=== PATIENT | female | born 1955 | race Caucasian/White ===

== ENCOUNTER → 2019-07-21 | Outpatient (CLI) | payer OTHER ==
[2019-07-21 10:53] LABS: INR 1.02 (0.85-1.15); PARTIAL THROMBOPLASTIN TIME 27.3 SEC (26.3-35.5); PROTHROMBIN TIME 10.7 SEC (9.6-11.6)
--- NOTE | 2019-07-21 11:25 | NUR ---
U/S GUIDED BX OF LEFT BREAST AND LEFT AXILLA PROCEDURE PERFORMED BY DR. TOWNSEND. PUNCTURE SITE LEFT LATERAL BREAST. PATIENT TOLERATED PROCEDURE WELL. SPECIMEN X 3 COLLECTED AND SENT TO LAB. END OF PROCEDURE AT 1145. TISSUE MARKER PLACED TO SITE, BIOPSY NEEDLE REMOVED AND DRESSING APPLIED. NO BLEEDING NOTED. PUNCTURE SITE TO THE LEFT AXILLA, PATIENT TOLERATED WELL. SPECIMEN X 3 COLLECTED AND SENT TO LAB. END OF PROCEDURE AT 1150, TISSUE MARKER PLACED TO SITE, BIOPSY NEEDLE REMOVED AND DRESSING APPLIED. NO BLEEDING NOTED. DISCHARGE INSTRUCTIONS GIVEN TO PATIENT. PATIENT VERBALIZED UNDERSTANDING. DISCHARGED AMBULATORY @ 1210. PT STABLE, AAO X 3, WITH NO C/O PAIN.
== END | disposition home or self-care (01) ==
LOC: RAH 09:48
PROVIDERS: ATTEND Internal Medicine Nephrology
DX: N63.22 Unspecified lump in the left breast, upper inner quadrant (principal); N63.32 Unspecified lump in axillary tail of the left breast; N60.32 Fibrosclerosis of left breast; Z88.1 Allergy status to other antibiotic agents
CPT/HCPCS: 19083; 19084; 36415; 85610; 85730; 88305; A4215 ×5

== ENCOUNTER 2022-09-06 13:46 | Emergency (ER) | payer OTHER ==
[~2022-09-06] VITALS: Ht 167.6 cm; Wt 71.7 kg
[2022-09-06 14:20] LABS: BASOPHILS % (AUTO) 0.6 % (0.0-5.0); EOSINOPHILS % (AUTO) 0.4 % (0.0-8.0); HEMATOCRIT 43.1 % (36-48); MEAN CORPUSCULAR HGB CONC 34.8 g/dL (32.0-36.0); MEAN CORPUSCULAR VOLUME 94.9 fL (79-99); NEUTROPHILS % (AUTO) 60.7 % (40.0-77.0); PLATELET COUNT (AUTO) 165 K/uL (130-400); RED BLOOD CELL COUNT(AUTO) 4.54 MIL/uL (4.00-5.50); RED CELL DISTRIBUTION WIDTH 12.6 % (11.0-15.5); WHITE BLOOD COUNT (AUTO) 7.2 K/uL (4.8-10.8)
[2022-09-06 14:28] LABS: CREATININE 0.7 mg/dL (0.5-1.5); POTASSIUM 3.6 mmol/L (3.5-5.1)
[2022-09-06] MEDS ORDERED: ONDANSETRON 4MG INJ IVP ONE (14:30)
[2022-09-06] MEDS ORDERED: LACTATED RINGERS 1000ML 1,000 ML IV ONE (14:30)
[2022-09-06 14:33] LABS: ALBUMIN 4.1 g/dL (3.5-5.0); TOTAL PROTEIN, SERUM 8.5 g/dL (6.0-8.3)
[2022-09-06 16:15] LABS: APPEARANCE,URINE CLEAR (CLEAR); BILIRUBIN,URINE NEGATIVE (NEGATIVE); COLOR,URINE LIGHT-YELLOW (YELLOW); GLUCOSE, URINE (UA) NEGATIVE (NEGATIVE); KETONES,URINE 10 mg/dL (NEGATIVE); LEUKOCYTE ESTERASE ,URINE NEGATIVE Leu/uL (NEGATIVE); NITRATE,URINE NEGATIVE (NEGATIVE); OCCULT BLOOD,URINE NEGATIVE (NEGATIVE); PROTEIN,URINE NEGATIVE (NEGATIVE); UROBILINOGEN,URINE 0.2 mg/dL (0.2-1.0)
[2022-09-06 16:24] LABS: BACTERIA,URINE RARE /HPF (None Seen); MUCUS,URINE RARE LPF (None Seen); SQUAMOUS EPITHELIAL CELL,UR FEW /HPF (0-2); WBC,URINE 0-1 /HPF (0-1)
[2022-09-06 17:22] VITALS: BP 125/78
[2022-09-06] MEDS ORDERED: ONDA-104 PO (17:29)
== END 2022-09-06 18:20 | disposition home or self-care (01) ==
LOC: EDH 13:46
DX: R10.84 Generalized abdominal pain (principal); R42 Dizziness and giddiness; R51.9 Headache, unspecified; E11.9 Type 2 diabetes mellitus without complications; I10 Essential (primary) hypertension; Z88.1 Allergy status to other antibiotic agents
CPT/HCPCS: 99285; 74176; 96374; 96361; 82150; 84484 ×2; 80053; 83690; 85025; 81001; 36415; 93005; J7120; J2405

== ENCOUNTER → 2023-04-04 | Outpatient (CLI) | payer OTHER ==
[~2023-04-04] MED LIST: ONDA-104 PO
== END | disposition home or self-care (01) ==
LOC: RAH 13:53
PROVIDERS: ATTEND Student in an Organized Health Care Education/Training Program
DX: M19.011 Primary osteoarthritis, right shoulder (principal); M75.21 Bicipital tendinitis, right shoulder; M25.711 Osteophyte, right shoulder
CPT/HCPCS: 73221

== ENCOUNTER 2023-05-18 05:48 | Day surgery (SDC) | payer OTHER, MEDICARE ==
[2023-05-16 11:44] LABS: BASOPHILS # (AUTO) 0.06 K/uL (0.00-0.20); BASOPHILS % (AUTO) 1.3 % (0.0-5.0); EOSINOPHILS # (AUTO) 0.07 K/uL (0.00-0.70); EOSINOPHILS % (AUTO) 1.5 % (0.0-8.0); HEMATOCRIT 41.3 % (36-48); LYMPHOCYTES # (AUTO) 2.3 K/uL (1.0-4.8); LYMPHOCYTES % (AUTO) 48.4 % (21.0-51.0); MEAN CORPUSCULAR HEMOGLOBIN 33.2 pg (27.0-33.0); MEAN CORPUSCULAR HGB CONC 34.4 g/dL (32.0-36.0); MEAN CORPUSCULAR VOLUME 96.5 fL (79-99); MONOCYTES # (AUTO) 0.5 K/uL (0.1-1.0); MONOCYTES % (AUTO) 10.3 % (3.0-13.0); NEUTROPHILS # (AUTO) 1.8 K/uL (1.8-7.7); NEUTROPHILS % (AUTO) 38.5 % (40.0-77.0); PLATELET COUNT (AUTO) 163 K/uL (130-400); RED BLOOD CELL COUNT(AUTO) 4.28 MIL/uL (4.00-5.50); RED CELL DISTRIBUTION WIDTH 12.5 % (11.0-15.5); WHITE BLOOD COUNT (AUTO) 4.7 K/uL (4.8-10.8)
[2023-05-16 11:50] VITALS: BP 135/70; PULSE 100; RESP 16
[2023-05-16 12:12] LABS: ALBUMIN 3.6 g/dL (3.5-5.0); CREATININE 0.6 mg/dL (0.5-1.5); CRP QUANTITATIVE 3.9 mg/L (0.00-9.0); POTASSIUM 3.4 mmol/L (3.5-5.1)
[2023-05-18] VITALS (21 sets, daily range): BP systolic 98–130; BP diastolic 51–86; PULSE 68–96; RESP 11–16
[~2023-05-18] VITALS: Ht 167.6 cm; Wt 69.9 kg
[~2023-05-18 05:48] MED LIST changes: +DESM10SP2 NS; +DULO20CA18 PO; +FOLIC ACID PO; +GABA300C PO; +LEVO25TA54 PO; +LINA145C PO; +METF-444 PO; -ONDA-104 PO; +ONDA4TAB10 SL; +ROSU10TA22 PO; +TRAZ-185 PO; +UBID1CAP56 PO; +VITA1CAP85 PO
[2023-05-18] MEDS ORDERED: CEFAZOLIN SODIUM 2 GM VIAL ONE (06:15)
[2023-05-18] MEDS ORDERED: LACTATED RINGERS 1000ML 1,000 ML IV ONE (06:15)
[2023-05-18] MEDS ORDERED: ONDANSETRON 4MG INJ ONE (06:53)
[2023-05-18] MEDS ORDERED: SUCCINYLCHOLINE CHLORIDE 20 MG/ML 10 ML VIAL ONE (06:53)
[2023-05-18] MEDS ORDERED: LIDOCAINE PF 100MG/5ML (2%) SYRINGE 5ML ONE (06:53)
[2023-05-18] MEDS ORDERED: DEXAMETHASONE SOD PHOSPHATE 10MG/ML 1ML VIAL ONE (06:53)
[2023-05-18] MEDS ORDERED: PROPOFOL 10 MG/ML 20ML VIAL IV ONE (06:54)
[2023-05-18] MEDS ORDERED: MIDAZOLAM HCL 1 MG/ML 2ML VIAL ONE (06:54)
[2023-05-18] MEDS ORDERED: FENTANYL CITRATE PF 50 MCG/1 ML 2ML VIAL ONE (06:54)
[2023-05-18] MEDS ORDERED: ROCURONIUM 10MG/1ML SYR 10 MG/ML ML ONE (06:54)
[2023-05-18] MEDS ORDERED: ROPIVACAINE 0.5% 5MG/ML 30ML IJ ONE (06:58)
[2023-05-18] MEDS ORDERED: LIDOCAINE HCL-MPF 2% 5ML VIAL ONE (06:58)
[2023-05-18] MEDS ORDERED: EPINEPHRINE PF 1MG (1:1,000) 1 MG/ML AMP ONE (07:13)
[2023-05-18] MEDS ORDERED: CEFAZOLIN SODIUM 2 GM VIAL IVPB ONE (07:42)
[2023-05-18] MEDS ORDERED: EPINEPHRINE PF 1MG (1:1,000) 1 MG/ML AMP IVP ONE (07:49)
[2023-05-18] MEDS ORDERED: PHENYLEPHRINE HCL 10 MG/ML 1ML VIAL IV ONE (07:59)
[2023-05-18] MEDS ORDERED: EPHEDRINE SULFATE 50 MG/ML AMPULE ONE (08:00)
[2023-05-18] MEDS ORDERED: DEXMEDETOMIDINE HCL 200 MCG/2 ML VIAL IV ONE (09:04)
[2023-05-18] MEDS ORDERED: MEPERIDINE-PF 25 MG/ML SYG ONE (11:21)
[2023-05-18] MEDS ORDERED: HYDR-4060 PO (12:11)
[2023-05-18] MEDS ORDERED: CYCL-309 PO (12:11)
[2023-05-18] MEDS ORDERED: GABA-529 PO (12:11)
[2023-05-18] MEDS ORDERED: HYDROCODONE/ACETAMINOPHEN 5/325 MG TAB ONE (13:23)
== END 2023-05-18 14:00 | disposition home or self-care (01) ==
LOC: DAH 05:48
PROVIDERS: ATTEND Student in an Organized Health Care Education/Training Program
DX: M75.121 Complete rotator cuff tear or rupture of right shoulder, not specified as traumatic (principal); Z20.822 Contact with and (suspected) exposure to COVID-19; M19.011 Primary osteoarthritis, right shoulder; M75.41 Impingement syndrome of right shoulder; M65.811 Other synovitis and tenosynovitis, right shoulder; M94.211 Chondromalacia, right shoulder; M75.21 Bicipital tendinitis, right shoulder; M67.211 Synovial hypertrophy, not elsewhere classified, right shoulder; M25.811 Other specified joint disorders, right shoulder; I10 Essential (primary) hypertension; E78.5 Hyperlipidemia, unspecified; E11.9 Type 2 diabetes mellitus without complications; F41.9 Anxiety disorder, unspecified; F32.A Depression, unspecified; I45.10 Unspecified right bundle-branch block; Z79.899 Other long term (current) drug therapy; Z79.01 Long term (current) use of anticoagulants; Z90.710 Acquired absence of both cervix and uterus; Z98.890 Other specified postprocedural states; Z88.0 Allergy status to penicillin; Z72.89 Other problems related to lifestyle; Z82.49 Family history of ischemic heart disease and other diseases of the circulatory system; Z84.1 Family history of disorders of kidney and ureter; Z79.82 Long term (current) use of aspirin; Z79.84 Long term (current) use of oral hypoglycemic drugs; Z79.890 Hormone replacement therapy
CPT/HCPCS: 82040; 80048; 85025; 84134; 86140; 87426; 36415; 93005; 29827; 64415; 29826; 29824; 82948 ×2; A4663; J7030; A4565; A4452; J7120; J3010; J1100; J0330; J2001; J0171 ×2; J3490 ×3; J2250; J2704; J2405; J2175; J2795; J2371; J0690 ×2; A6223; A4649 ×2; C1713; A4215; A4223; A4222; A4221; A4600

== ENCOUNTER → 2023-10-03 | Outpatient (CLI) | payer OTHER, MEDICARE ==
[~2023-10-03] MED LIST changes: +CYCL-309 PO; +GABA-529 PO; -GABA300C PO; +HYDR-4060 PO
[2023-10-03 11:50] LABS: CREATININE 0.6 mg/dL (0.5-1.5)
== END | disposition home or self-care (01) ==
LOC: LAB 10:30
PROVIDERS: ATTEND Internal Medicine Gastroenterology
DX: K74.02 Hepatic fibrosis, advanced fibrosis (principal)
CPT/HCPCS: 36415; 82565; 84520

== ENCOUNTER → 2023-10-08 | Outpatient (CLI) | payer OTHER, MEDICARE ==
[~2023-10-08] MED LIST changes: +IOHEXOL 350 MG/ML 100ML INFUS..BTL IV ONE
== END | disposition home or self-care (01) ==
LOC: RAH 08:35
PROVIDERS: ATTEND Internal Medicine Gastroenterology
DX: K76.0 Fatty (change of) liver, not elsewhere classified (principal); K74.02 Hepatic fibrosis, advanced fibrosis; R77.2 Abnormality of alphafetoprotein; J84.10 Pulmonary fibrosis, unspecified; I25.10 Atherosclerotic heart disease of native coronary artery without angina pectoris
CPT/HCPCS: 74170; Q9967

== ENCOUNTER 2024-09-01 18:49 | Emergency (ER) | payer OTHER, MEDICARE ==
[~2024-09-01] VITALS: Ht 167.6 cm; Wt 64.9 kg
[~2024-09-01 18:49] MED LIST changes: -IOHEXOL 350 MG/ML 100ML INFUS..BTL IV ONE; +ONDA-243 SL; -ONDA4TAB10 SL
[2024-09-01 19:23] LABS: BASOPHILS # (AUTO) 0.03 K/uL (0.00-0.20); BASOPHILS % (AUTO) 0.7 % (0.0-5.0); EOSINOPHILS # (AUTO) 0.05 K/uL (0.00-0.70); EOSINOPHILS % (AUTO) 1.2 % (0.0-8.0); HEMATOCRIT 35.6 % (36-48); IMMATURE GRANULOCYTE ABSOLUTE 0.01 K/uL (0-1); LYMPHOCYTES # (AUTO) 2.4 K/uL (1.0-4.8); LYMPHOCYTES % (AUTO) 57.2 % (21.0-51.0); MEAN CORPUSCULAR HEMOGLOBIN 34.6 pg (27.0-33.0); MEAN CORPUSCULAR HGB CONC 33.7 g/dL (32.0-36.0); MEAN CORPUSCULAR VOLUME 102.6 fL (79-99); MONOCYTES # (AUTO) 0.4 K/uL (0.1-1.0); MONOCYTES % (AUTO) 8.7 % (3.0-13.0); NEUTROPHILS # (AUTO) 1.4 K/uL (1.8-7.7); PLATELET COUNT (AUTO) 91 K/uL (130-400); RED BLOOD CELL COUNT(AUTO) 3.47 MIL/uL (4.00-5.50); RED CELL DISTRIBUTION WIDTH 13.9 % (11.0-15.5); WHITE BLOOD COUNT (AUTO) 4.2 K/uL (4.8-10.8)
[2024-09-01 19:27] LABS: CREATININE 0.7 mg/dL (0.5-1.0)
[2024-09-01 19:29] LABS: INR 1.15 (0.85-1.15); PROTHROMBIN TIME 12.3 SEC (9.6-11.6)
--- NOTE | 2024-09-01 19:29 | HMCIMG ---
CHEST 1VW REASON: chest COMPARISON: 11/27/2014 FINDINGS: There is mild cardiomegaly. There is no pulmonary vascular congestion. Lungs are clear. Mediastinum and bony thorax appear unremarkable. IMPRESSION: 1. Myocardial megaly, no acute finding.
[2024-09-01 19:31] LABS: PARTIAL THROMBOPLASTIN TIME 30.8 SEC (26.3-35.5)
[2024-09-01 19:32] LABS: MAGNESIUM 1.7 mg/dL (1.80-2.40)
[2024-09-01 19:46] LABS: B-TYPE NATRIURETIC PEPTIDE 76 pg/mL (0-100)
--- NOTE | 2024-09-01 20:52 | EKG ---
[facility] Test Date: 2024-09-01 Test Time: 18:47:19 Pat Name: KIN FERRER Department: [facility] Room: Gender: F Electroencephalographic Technologist: [id number] : 1955 Requested By: EUGENIE CAMARILLO Order Number: [id number] Reading MD: Jasmin Leroy Measurements Intervals [place] Rate: 97 P: 72 [place]: 199 QRS: -42 QRSD: 115 T: 27 QT: 363 QTc: 463 Interpretive Statements Sinus rhythm Probable left atrial enlargement Incomplete RBBB and LAFB Compared to ECG 05/16/2023 12:08:28 No significant changes Electronically Signed On 09-03-2024 05:19:06 STUDY ASSISTANT by Jasmin Leroy Please click the below link to view image of tracing.
[2024-09-01] MEDS ORDERED: KETO10TA2 PO (22:20)
--- NOTE | 2024-09-01 22:21 | ERN ---
General Chief Complaint: Chest Pain Stated Complaint: ABD PAIN, CP, SWELLING TO LEFT ARM/LEG Time Seen by MD: 20:26 Time Seen by Midlevel: 20:26 Source: patient History of Present Illness Initial Comments Patient is a 68-year-old female with a past medical history of rheumatoid arthritis presenting to the emergency department with left-sided pain. Patient states she was working out in her lawn earlier today when she developed numbness to her left upper arm followed by pain to her left arm and left leg. She denies any focal weakness, altered mental status, slurred speech, facial droop, or any other symptoms at this time. Later during the day she noticed swelling to her left ankle so she decided to report to the ER for further evaluation. Allergies: Coded Allergies: ciprofloxacin (Unverified Allergy, Unknown, 07/21/19) Home Meds Active Scripts Ketorolac Tromethamine (Ketorolac Tromethamine) 10 Mg Tablet, 10 MG PO BID for 5 Days, #10 TAB Prov:YAMEL AMIN 09/01/24 Cyclobenzaprine HCl (Cyclobenzaprine HCl) 10 Mg Tablet, 10 MG PO Q8H PRN for spasm for 30 Days, #90 TAB 0 Refills Prov:CAMRYN CARABALLO MD 05/18/23 Gabapentin (Gabapentin) 100 Mg Capsule, 100 MG PO TID for pain for 30 Days, #90 CAP 0 Refills Prov:CAMRYN CARABALLO MD 05/18/23 Hydrocodone/Acetaminophen (Hydrocodon-Acetaminophen 5-325) 1 Each Tablet, 1 EACH PO Q6HPRN PRN for PAIN for 7 Days, #28 TAB 0 Refills Prov:CAMRYN CARABALLO MD 05/18/23 Reported Medications Desmopressin (Nonrefrigerated) (Desmopressin 10 Mcg/0.1 ml Spr) 10 Mcg/0.1 Ml [place].pump, 1 SPRAY NS HS 05/16/23 Ubidecarenone/Vit E Acetate (Co Q-10 100 mg Softgel) 1 Each Capsule, 1 EACH PO HS, CAP 05/16/23 Ondansetron (Ondansetron Odt) 4 Mg Tab.rapdis, 4 MG SL DAILY PRN for NAUSEA/VOMITING, TAB 05/16/23 Linaclotide (Linzess) 145 Mcg Capsule, 145 MCG PO DAILY, CAP 05/16/23 Vitamin B Complex (Vitamin B Complex) 1 Each Capsule, 1 EACH PO DAILY, CAP 05/16/23 Trazodone HCl (Trazodone HCl) 50 Mg Tablet, 50 MG PO HS, TAB 05/16/23 Levothyroxine Sodium (Levothyroxine Sodium) 25 Mcg Tablet, 25 MCG PO ACBKFST, TAB 05/16/23 Rosuvastatin Calcium (Crestor) 10 Mg Tablet, 10 MG PO HS, TAB 05/16/23 Duloxetine HCl (Duloxetine HCl) 20 Mg Capsule.dr, 20 MG PO DAILY, CAP 05/16/23 [Folic Acid] No Conflict Check, 1 MG PO DAILY 05/16/23 Metformin HCl (Metformin HCl) 500 Mg Tablet, 500 MG PO HS, TAB 05/16/23 Past Medical History Past Medical History: Diabetes-Type II, Hypertension, Hypothyroid Past Surgical History: Hysterectomy, Cholecystectomy Surgical History Other: THYROID, SHOULDER Social History Social History: Negative, Lives with family ROS Dictation CONSTITUTIONAL: Negative except for HPI HEAD/FACE: Negative except for HPI EENT: Negative except for HPI RESPIRATORY: Negative except for HPI GASTROINTESTINAL/ABDOMINAL: Negative except for HPI GENITOURINARY: Negative except for HPI MUSCULOSKELETAL: Negative except for HPI INTEGUMENTARY: Negative except for HPI NEUROLOGICAL/PSYCH: Negative except for HPI HEMATOLOGIC/LYMPHATIC: Negative except for HPI All Systems Negative, Except as noted above. 13 point review of systems assessed and all negative except for above. Physical Exam Physical Exam Dictation Vital Signs reviewed General Appearance: Alert, oriented x 3, no acute distress, well developed, nourished. Head and Face: non-traumatic. Eyes: PERRL, pink conjunctivas, eyelid no trauma, anterior chamber with arcus senilis. Ears: Pinnas intact and no signs of trauma or erythema ear canals clear and no discharge TM no erythema Nose: No discharge, no bleeding. Oropharynx: Mouth normal, tongue pink, pharynx clear,no erythema, tonsils no exudates, no abscesses noted, mucous membrane moist Neck: Supple, non-tender, no thyromegaly, no masses, no JVD, no bruits Breast:Deferred Chest:No tenderness, no crepitus, no paradoxical movement, no retractions Lungs:Clear, well-ventilated, symmetric, no rales, no wheezing, no rhonchi, no stridor, good breath sounds bilaterally Heart: Regular rate, regular rhythm, no murmur, no gallops Vascular: no peripheral edema, Abdomen: Soft, positive bowel sounds, nondistended, no guarding, nontender, no rebound, no masses no hepatomegaly, no splenomegaly, no Gallegos's sign, no hernias. Rectal: Deferred Genital: Deferred Neurological: Normal speech, motor function intact, sensory function intact Musculoskeletal: Neck nontender, full range of motion, back nontender, full range of motion, Extremities: Swelling to the left lateral malleolus, swelling and tenderness over the left forearm Skin: Color pink, dry, no turgor, no rash, no lacerations, no abrasions, no contusions. Lymphatic: Deferred Results Laboratory and Microbiology Lab and Micro Result Laboratory Tests Test 09/01/24 19:08 09/01/24 21:14 White Blood Count 4.2 K/uL (4.8-10.8) L Red Blood Count 3.47 MIL/uL (4.00-5.50) L Hemoglobin 12.0 g/dL (12.0-16.0) Hematocrit 35.6 % (36-48) L Mean Corpuscular Volume 102.6 fL (79-99) H Mean Corpuscular Hemoglobin 34.6 pg (27.0-33.0) H Mean Corpuscular Hemoglobin Concent 33.7 g/dL (32.0-36.0) Red Cell Distribution Width 13.9 % (11.0-15.5) Platelet Count 91 K/uL (130-400) L Mean Platelet Volume 9.1 fL (7.5-10.5) Immature Granulocyte % (Auto) 0.2 % (0-1) Neutrophils (%) (Auto) 32.0 % (40.0-77.0) L Lymphocytes (%) (Auto) 57.2 % (21.0-51.0) H Monocytes (%) (Auto) 8.7 % (3.0-13.0) Eosinophils (%) (Auto) 1.2 % (0.0-8.0) Basophils (%) (Auto) 0.7 % (0.0-5.0) Neutrophils # (Auto) 1.4 K/uL (1.8-7.7) L Lymphocytes # (Auto) 2.4 K/uL (1.0-4.8) Monocytes # (Auto) 0.4 K/uL (0.1-1.0) Eosinophils # (Auto) 0.05 K/uL (0.00-0.70) Basophils # (Auto) 0.03 K/uL (0.00-0.20) Absolute Immature Granulocyte (auto 0.01 K/uL (0-1) Nucleated Red Blood Cells 0.0 % (0.0-0.19) Prothrombin Time 12.3 SEC (9.6-11.6) H Prothromb Time International Ratio 1.15 (0.85-1.15) Activated Partial Thromboplast Time 30.8 SEC (26.3-35.5) Sodium Level 145 mmol/L (136-145) Potassium Level 4.0 mmol/L (3.5-5.1) Chloride Level 108 mmol/L (101-111) Carbon Dioxide Level 32 mmol/L (21-32) Blood Urea Nitrogen 6 mg/dL (7-18) L Creatinine 0.7 mg/dL (0.5-1.0) Glomerular Filtration Rate Calc 93 mL/min (>90) Random Glucose 135 mg/dL (70-105) H Total Calcium 8.9 mg/dL (8.5-10.1) Magnesium Level 1.70 mg/dL (1.80-2.40) L Total Creatine Kinase 259 U/L (21-232) #H Troponin I High Sensitivity 12 ng/L (4-50) 13 ng/L (4-50) B-Type Natriuretic Peptide 76 pg/mL (0-100) Labs Reviewed?: Yes EKG/XRAY/US/CT/MRI EKG Comment [facility] Test Date: 2024-09-01 Test Time: 18:47:19 Pat Name: KIN FERRER Department: [facility] Room: Gender: Female Buckle Stringer: [facility] : 1955 Requested By: EUGENIE CAMARILLO Order Number: [id number] Reading MD: Measurements Intervals [place] Rate: 97 P: 72 [place]: 199 QRS: -42 QRSD: 115 T: 27 QT: 363 QTc: 463 HEART SCORE IS FOUR Interpretive Statements Sinus rhythm Probable left atrial enlargement Incomplete RBBB and LAFB No previous ECG available for comparison Please click the below link to view image of tracing. X-RAY Comment CHEST 1VW REASON: chest COMPARISON: 11/27/2014 FINDINGS: There is mild cardiomegaly. There is no pulmonary vascular congestion. Lungs are clear. Mediastinum and bony thorax appear unremarkable. IMPRESSION: 1. Myocardial megaly, no acute finding. LEFT WRIST OR DEGENERATIVE CHANGES ONLY LEFT ANKLE DEGENERATIVE CHANGES ONLY MDM MDM: DIFFERENTIAL DIAGNOSIS: ACS/AMI/RHEUMATIC ARTHRITIS FLARE/CERVICAL SONIA ROPATHY/PARESTHESIA/ELECTROLYTE IMBALANCE/DEHYDRATION RATIONALE: TESTS CONSIDERED AND ORDERED SECONDARY TO SHARED DECISION MAKING INCLUDE: RADIOLOGY/LABS/EKG PREVIOUS OUTSIDE RECORDS REVIEWED: OLD ER VISITS. REVIEWED RISK OF COMPLICATION AND/OR MORBIDITY OR MORTALITY OF PATIENT MANAGEMENT: NONE MEDICATIONS-PER MEDICATION RECONCILIATION SEE NURSE'S NOTES NEED FOR HOSPITALIZATION: PATIENT DOES NOT MEET CRITERIA FOR HOSPITALIZATION. NO NEED FOR EMERGENCY MAJOR/MINOR SURGERY: NO THERE ARE NO SOCIAL CONCERNS WITH THIS PATIENT. PRESCRIPTION DRUG MANAGEMENT PREDNISONE/OMEPRAZOLE/TYLENOL WITH CODEINE PATIENT'S PRIOR EXTERNAL MEDICAL RECORDS FROM OTHER ER VISITS WERE REVIEWED BY ME INDICATED. PRIOR TESTING AND RESULTS FROM PREVIOUS VISITS WERE REVIEWED. PRIOR TESTS WERE TAKEN INTO ACCOUNT WITH MEDICAL DECISION MAKING AND RESOURCE UTILIZATION, INDEPENDENT HISTORIAN/HISTORIANS WERE USED TO OBTAIN COMPLETE MEDICAL HISTORY. I INDEPENDENTLY INTERPRETED THE TEST THAT WERE PERFORMED, RESULTS WERE REVIEWED BY ME AND CONSIDERED FINDINGS ON RADIOLOGY IF ORDERED. MEDICAL MANAGEMENT AND EXAMINATION INTERPRETATION DISCUSSIONS WERE HAD BY ME WITH OTHER QUALIFIED HEALTHCARE PROFESSIONALS INDICATED FOR THE PATIENT'S CARE. ED Course Orders Procedure Category Date Status Time Cbc With Differential LAB 09/01/24 Complete 18:54 Prothrombin Time With LAB 09/01/24 Complete INR 18:54 B-Type Natriuretic LAB 09/01/24 Complete Peptide 18:54 Chest 1vw RAD 09/01/24 Resulted 18:54 12 Lead Ekg Tracing- EKG 09/01/24 Complete Technical 18:54 Magnesium LAB 09/01/24 Complete 18:54 Creatine Kinase, Total LAB 09/01/24 Complete 18:54 Troponin I High LAB 09/01/24 Complete Sensitivity 18:54 Urinalysis Profile LAB 09/01/24 Logged 18:54 Partial LAB 09/01/24 Complete Thromboplastin Time 18:54 Basic Metabolic Panel LAB 09/01/24 Complete 18:54 Troponin I High LAB 09/01/24 Complete Sensitivity 21:03 0.9%Nacl 1000ml (Ns PHA 09/01/24 Complete 1000ml) 22:30 Ketorolac PHA 09/01/24 Complete Tromethamine 15mg/Ml 22:30 Dexamethasone 4mg/Ml PHA 09/01/24 Complete 1ml Vial (Dexametha 22:30 Ankle Comp 3vws Lt RAD 09/01/24 Taken 22:08 Wrist 2vws Lt RAD 09/01/24 Taken 22:08 Morphine 2mg Syg PHA 09/02/24 Complete (Morphine 2mg Syg) 00:00 Methylprednisolone PHA 09/02/24 Verified Succ 125mg (Solu-Medr 00:30 Current Medications Medications (Trade) Dose Ordered Sig/Franki Route PRN Reason Start Time Stop Time Status Last Admin Dose Admin Dexamethasone Sodium Phosphate (dexaMETHasone 4MG/ML 1ML VIAL) 10 mg ONCE ONCE IV 09/01/24 22:30 09/01/24 22:31 DC 09/01/24 23:22 Ketorolac Tromethamine (toRADol) 15 mg ONCE ONCE IV 09/01/24 22:30 09/01/24 22:31 DC 09/01/24 23:23 Morphine Sulfate (morPHINE 2MG SYG) 2 mg ONCE ONCE IVP 09/02/24 00:00 09/02/24 00:01 09/01/24 23:51 Sodium Chloride 1,000 ml @ 0 mls/hr ONCE ONCE IV 09/01/24 22:30 09/01/24 22:31 DC 09/01/24 23:22 Vital Signs Date Time Temp Pulse Resp B/P (MAP) Pulse Ox O2 Delivery O2 Flow Rate FiO2 09/01/24 18:52 97.9 88 16 148/87 99 Room Air 0 DX & DISP Disposition: Discharge Departure Impression: Primary Impression: Dehydration Additional Impression: Rheumatoid arthritis flare Condition: Stable Scripts Omeprazole (Omeprazole) 40 Mg Capsule.dr 1 CAP PO DAILY for 30 Days, #30 CAP 0 Refills Prov: JOSEPH IBRAHIM NP 09/02/24 Prednisone (Prednisone) 20 Mg Tablet 1 TAB PO AD for 6 Days, #14 TAB 0 Refills TAKE 1 TAB BY MOUTH THREE TIMES PER DAY X3 DAYS, THEN TAKE 1 TAB BY MOUTH TWICE A DAY X2 DAYS, THEN TAKE 1 TAB BY MOUTH ONCE A DAY X1 DAY. Prov: JOSEPH IBRAHIM NP 09/02/24 Acetaminophen with Codeine (Acetaminophen-Cod #3 Tablet) 300 Mg-30 Mg Tablet 1 TAB PO Q4H PRN for MODERATE TO SEVERE PAIN, #15 TAB Prov: JOSEPH IBRAHIM NP 09/02/24 Ketorolac Tromethamine (Ketorolac Tromethamine) 10 Mg Tablet 10 MG PO BID for 5 Days, #10 TAB Prov: YAMEL AMIN 09/01/24 Additional Instructions: Follow-up with primary care provider in 1 to 2 days. Take medications as directed here in the emergency room. Okay to continue home medications unless otherwise discussed during your visit in the emergency room today. Return to your nearest emergency room if symptoms worsen or if there is no improvement. Call 911 if you need immediate assistance. Take Tylenol or Motrin [id number] as needed and if no contraindications are present. Increase oral hydration. A wound culture or urine culture was ordered here in the emergency room department please follow-up with primary care provider and advise them to get repeat ports from our facility. If you had any Collins wrap/splints that were applied here, please do not remove them until you see your primary care or specialty. Take omeprazole daily as directed. Take prednisone as directed on the instructions. Take Tylenol with codeine for severe pain. See your primary care doctor for follow up in 1-2 days and recommend you see a supervisor of research for management of your rheumatoid arthritis. Referrals: SILVERIO JEFFERS MD (PCP) Time of Disposition: 22:19 I have reviewed the case, and I agree with, Diagnosis and Plan YAMEL AMIN Sep 01, 2024 22:21 JOSEPH IBRAHIM NP Sep 01, 2024 23:33
[2024-09-01] MEDS: 0.9%NACL 1000ML 1,000 ML IV ONE (23:22)
[2024-09-01] MEDS: dexaMETHasone SOD PHOSPHATE 4 MG/ML 1ML VIAL IV ONE (23:22)
[2024-09-01] MEDS: ketOROlac 15MG/ML VIAL (15MG/ML) IV ONE (23:23)
[2024-09-01] MEDS: morPHINE 2 MG SYG IVP ONE (23:51)
[2024-09-02] MEDS ORDERED: ACET-2079 PO (00:08)
[2024-09-02] MEDS ORDERED: OMEP40CA21 PO (00:08)
[2024-09-02] MEDS ORDERED: PRED20TA3 PO (00:08)
[2024-09-02] MEDS: Solu-medROL 125MG VIAL IVP ONE (00:15)
[2024-09-02 00:33] VITALS: BP 145/66; PULSE 88; RESP 18; TEMP 98.4; O2SAT 99
[2024-09-02 00:37] LABS: APPEARANCE,URINE CLEAR (CLEAR); BILIRUBIN,URINE NEGATIVE (NEGATIVE); COLOR,URINE COLORLESS (YELLOW); GLUCOSE, URINE (UA) NEGATIVE (NEGATIVE); KETONES,URINE NEGATIVE (NEGATIVE); LEUKOCYTE ESTERASE ,URINE NEGATIVE Leu/uL (NEGATIVE); NITRATE,URINE NEGATIVE (NEGATIVE); OCCULT BLOOD,URINE NEGATIVE (NEGATIVE); PROTEIN,URINE NEGATIVE (NEGATIVE); UROBILINOGEN,URINE 0.2 mg/dL (0.2-1.0)
[2024-09-02 00:42] LABS: ADD UA MICROSCOPIC NO
--- NOTE | 2024-09-02 08:26 | HMCIMG ---
WRIST 2VWS LT REASON: left wrist swelling COMPARISON: None TECHNIQUE: 3 views were performed. FINDINGS: There are normal-appearing views of the left wrist. There are no fractures. Joint spaces are preserved and soft tissues appear unremarkable. There are no foreign bodies. IMPRESSION: 1. Normal views of the left wrist.
--- NOTE | 2024-09-02 08:27 | HMCIMG ---
ANKLE COMP 3VWS LT REASON: left ankle swelling TECHNIQUE: 3 views were obtained. FINDINGS: There is no evidence of fracture or dislocation. There is no joint effusion. The soft tissues appear unremarkable. There is no evidence of a radiopaque foreign body. IMPRESSION: No acute findings.
== END 2024-09-02 00:38 | disposition home or self-care (01) ==
LOC: EDH 18:49
DX: A00.0 Cholera due to Vibrio cholerae 01, biovar cholerae (principal); M06.9 Rheumatoid arthritis, unspecified; E86.0 Dehydration; E03.9 Hypothyroidism, unspecified; E11.9 Type 2 diabetes mellitus without complications; I10 Essential (primary) hypertension; Z79.899 Other long term (current) drug therapy; Z88.1 Allergy status to other antibiotic agents; Z90.49 Acquired absence of other specified parts of digestive tract; Z90.710 Acquired absence of both cervix and uterus
CPT/HCPCS: 99285; 96374; 96375 ×2; 71045; 82550; 83735; 84484 ×2; 80048; 83880; 85025; 85610; 85730; 81003; 36415; 73100; 73610; 93005; J1100; J2270; J7030; J1885; J2919

== ENCOUNTER → 2024-10-14 | Outpatient (CLI) | payer OTHER, MEDICARE ==
[~2024-10-14] MED LIST changes: +ACET-2079 PO; +KETO10TA2 PO; +OMEP40CA21 PO; +PRED20TA3 PO
[2024-10-14 11:52] LABS: CREATININE 0.7 mg/dL (0.5-1.0)
== END | disposition home or self-care (01) ==
LOC: LAB 11:24
PROVIDERS: ATTEND Internal Medicine Gastroenterology
DX: K74.60 Unspecified cirrhosis of liver (principal); R77.2 Abnormality of alphafetoprotein
CPT/HCPCS: 36415; 82565; 84520

== ENCOUNTER → 2025-05-06 | Outpatient (CLI) | payer OTHER, MEDICARE ==
--- NOTE | 2025-05-07 03:18 | HMCIMG ---
EXAM: CR Lumbar Spine, 4 views. CLINICAL HISTORY: Low back pain. COMPARISON: None provided. FINDINGS: Mildly unstable grade 1 degenerative anterolisthesis of L4 on L5 with mild worsening on flexion and improvement on extension. Mild osteopenia. Moderate spondylosis and degenerative disc space narrowing, most pronounced at L5-S1. Normal vertebral body heights. No acute fracture. Atherosclerotic vascular calcifications. Surgical clips in the right upper quadrant of the abdomen. IMPRESSION: Mildly unstable grade 1 degenerative anterolisthesis of L4 on L5 with mild worsening on flexion and improvement on extension. Mild osteopenia. Moderate spondylosis and degenerative disc space narrowing, most pronounced at L5-S1. /[place]
--- NOTE | 2025-05-07 03:23 | HMCIMG ---
EXAM: CR Thoracic Spine, 2 views. CLINICAL HISTORY: Pain. COMPARISON: None provided. FINDINGS: Mild dextrocurvature of the thoracic spine. Mild osteopenia. Mild to moderate spondylosis and degenerative disc space narrowing at multiple levels. Normal vertebral body heights. No acute fracture. Soft tissues are within normal limits. IMPRESSION: No acute fracture. Mild dextrocurvature of the thoracic spine. Mild osteopenia. Mild to moderate spondylosis and degenerative disc space narrowing at multiple levels. /[place]
== END | disposition home or self-care (01) ==
LOC: RAH 09:54
PROVIDERS: ATTEND Physical Medicine & Rehabilitation
DX: M47.817 Spondylosis without myelopathy or radiculopathy, lumbosacral region (principal); M43.16 Spondylolisthesis, lumbar region; M54.51 Vertebrogenic low back pain; G56.03 Carpal tunnel syndrome, bilateral upper limbs; M48.07 Spinal stenosis, lumbosacral region; M43.8X4 Other specified deforming dorsopathies, thoracic region; M85.88 Other specified disorders of bone density and structure, other site; I70.8 Atherosclerosis of other arteries
CPT/HCPCS: 72072; 72114

== ENCOUNTER 2025-07-04 14:15 | Emergency (ER) | payer MEDICARE ==
[~2025-07-04] VITALS: Ht 167.6 cm; Wt 63.5 kg
[2025-07-04 15:01] LABS: IMMATURE GRANULOCYTE ABSOLUTE 0.01 K/uL (0-1); NUCLEATED RED BLOOD CELLS 0.0 % (0.0-0.19); PLATELET COUNT (AUTO) 82 K/uL (130-400); RED BLOOD CELL COUNT(AUTO) 3.40 MIL/uL (4.00-5.50); RED CELL DISTRIBUTION WIDTH 14.8 % (11.0-15.5); WHITE BLOOD COUNT (AUTO) 3.3 K/uL (4.8-10.8)
[2025-07-04 15:09] LABS: CREATININE 0.7 mg/dL (0.5-1.0); GLOMERULAR FILTR. RATE CALC 92.0 mL/min (>90); GLUCOSE,RANDOM 154.0 mg/dL (70-105); SODIUM SERUM 141.0 mmol/L (136-145); UREA NITROGEN, BLOOD 7.0 mg/dL (7-18)
[2025-07-04 15:14] LABS: ASPARTATE AMINOTRANSFERASE 72.0 U/L (10-37); CREATINE KINASE, TOTAL 130.0 U/L (21-232); TOTAL PROTEIN, SERUM 6.5 g/dL (6.0-8.3)
--- NOTE | 2025-07-04 17:02 | ERN ---
General Chief Complaint: Depression Stated Complaint: DEPRESSION Time Seen by MD: 14:17 Source: patient History of Present Illness Initial Comments Patient is a 69-year-old female coming in complaining of depression. Per patient does has a history of depression and recently had a loss in her family. Patient was seen at a mental health facility medications were given but has been states he is more withdrawn now. Allergies: Coded Allergies: ciprofloxacin (Unverified Allergy, Unknown, 07/21/19) Home Meds Active Scripts Omeprazole (Omeprazole) 40 Mg Capsule.dr, 1 CAP PO DAILY for 30 Days, #30 CAP 0 Refills Prov:JOSEPH IBRAHIM NP 09/02/24 Prednisone (Prednisone) 20 Mg Tablet, 1 TAB PO AD for 6 Days, #14 TAB 0 Refills TAKE 1 TAB BY MOUTH THREE TIMES PER DAY X3 DAYS, THEN TAKE 1 TAB BY MOUTH TWICE A DAY X2 DAYS, THEN TAKE 1 TAB BY MOUTH ONCE A DAY X1 DAY. Prov:JOSEPH IBRAHIM NP 09/02/24 Acetaminophen with Codeine (Acetaminophen-Cod #3 Tablet) 300 Mg-30 Mg Tablet, 1 TAB PO Q4H PRN for MODERATE TO SEVERE PAIN, #15 TAB Prov:JOSEPH IBRAHIM NP 09/02/24 Ketorolac Tromethamine (Ketorolac Tromethamine) 10 Mg Tablet, 10 MG PO BID for 5 Days, #10 TAB Prov:YAMEL AMIN 09/01/24 Cyclobenzaprine HCl (Cyclobenzaprine HCl) 10 Mg Tablet, 10 MG PO Q8H PRN for spasm for 30 Days, #90 TAB 0 Refills Prov:CAMRYN CARABALLO MD 05/18/23 Gabapentin (Gabapentin) 100 Mg Capsule, 100 MG PO TID for pain for 30 Days, #90 CAP 0 Refills Prov:CAMRYN CARABALLO MD 05/18/23 Hydrocodone/Acetaminophen (Hydrocodon-Acetaminophen 5-325) 1 Each Tablet, 1 EACH PO Q6HPRN PRN for PAIN for 7 Days, #28 TAB 0 Refills Prov:CAMRYN CARABALLO MD 05/18/23 Reported Medications Desmopressin (Nonrefrigerated) (Desmopressin 10 Mcg/0.1 ml Spr) 10 Mcg/0.1 Ml [place].pump, 1 SPRAY NS HS 05/16/23 Ubidecarenone/Vit E Acetate (Co Q-10 100 mg Softgel) 1 Each Capsule, 1 EACH PO HS, CAP 05/16/23 Ondansetron (Ondansetron Odt) 4 Mg Tab.rapdis, 4 MG SL DAILY PRN for NAUSEA/VOMITING, TAB 05/16/23 Linaclotide (Linzess) 145 Mcg Capsule, 145 MCG PO DAILY, CAP 05/16/23 Vitamin B Complex (Vitamin B Complex) 1 Each Capsule, 1 EACH PO DAILY, CAP 05/16/23 Trazodone HCl (Trazodone HCl) 50 Mg Tablet, 50 MG PO HS, TAB 05/16/23 Levothyroxine Sodium (Levothyroxine Sodium) 25 Mcg Tablet, 25 MCG PO ACBKFST, TAB 05/16/23 Rosuvastatin Calcium (Crestor) 10 Mg Tablet, 10 MG PO HS, TAB 05/16/23 Duloxetine HCl (Duloxetine HCl) 20 Mg Capsule.dr, 20 MG PO DAILY, CAP 05/16/23 [Folic Acid] No Conflict Check, 1 MG PO DAILY 05/16/23 Metformin HCl (Metformin HCl) 500 Mg Tablet, 500 MG PO HS, TAB 05/16/23 Past Medical History Past Medical History: Diabetes-Type II, Hypertension, Hypothyroid Past Surgical History: Hysterectomy, Cholecystectomy Surgical History Other: THYROID, SHOULDER Social History Social History: Negative, Lives with family ROS Dictation CONSTITUTIONAL: No chills, no fever, no weakness, no diaphoresis, no malaise. HEAD/FACE: No signs of trauma. EENT: No eye pain, no blurred vision, no tearing, no double vision, no ear pain, no ear discharge, no nose pain, no nasal congestion, no throat pain, no throat swelling, no mouth pain. RESPIRATORY: No cough, no orthopnea, no SOB, no stridor, no wheezing. CARDIOVASCULAR: No chest pain, no edema, no palpitations, no syncope. GASTROINTESTINAL/ABDOMINAL: No abdominal pain, no constipation, no diarrhea, no nausea, no vomiting. GENITOURINARY: No abnormal discharge, no dysuria, no frequent urination, no hematuria. No complaints of pain in the genitals. MUSCULOSKELETAL: No back pain, no gout, no joint pain, no joint swelling, no muscle pain, no muscle stiffness, no neck pain. INTEGUMENTARY: No change in color, no change in hair/nails, no dryness, no lesion, no lumps, no rash. NEUROLOGICAL/PSYCH: No anxiety, not depressed, no emotional problem, no headache, no numbness, no pre-existing deficit, no history of seizures, no tremors, no weakness. HEMATOLOGIC/LYMPHATIC: Not anemic, no history of blood clots, no apparent bleeding, no bruising, glands not swollen. All Systems Negative, Except as Noted. Physical Exam Physical Exam Dictation VITAL SIGNS: Reviewed. GENERAL APPEARANCE: Alert, oriented x3, no acute distress, obese. HEAD AND FACE: Non-traumatic. EYES: PERRL, pink conjunctivas, eyelid no trauma, anterior chamber clear. EARS: Pinnas intact and no signs of trauma or erythema. Ear canals clear and no discharge. TMs no erythema. NOSE: No discharge, no bleeding. OROPHARYNX: Mouth normal, teeth no caries, tongue pink. Pharynx clear, no erythema. Tonsils no exudates, no abscesses noted. Mucous membrane moist. NECK: Supple, non-tender, no thyromegaly, no masses, no JVD, no bruits. BREAST: Deferred. CHEST: No tenderness, no crepitus, no paradoxical movement, no retractions. LUNGS: Clear, well-ventilated, symmetric, no rales, no wheezing, no rhonchi, no stridor, good breath sounds bilaterally. HEART: Regular rate, regular rhythm, no murmur, no gallops. VASCULAR: No peripheral edema. ABDOMEN: Soft, positive bowel sounds, nondistended, no guarding, nontender, no rebound, no masses no hepatomegaly, no splenomegaly, no Gallegos's sign, no hernias. RECTAL: Deferred. GENITAL: Deferred. NEUROLOGICAL: Normal speech, gross motor function intact, gross sensory function intact. MUSCULOSKELETAL: Neck nontender, full range of motion, back nontender, full range of motion. EXTREMITIES: Nontender, full range of motion. SKIN: Color pink, dry, no turgor, no rash, no lacerations, no abrasions, no contusions. LYMPHATICS: Deferred. Results Laboratory and Microbiology Lab and Micro Result Laboratory Tests Test 07/04/25 14:43 07/04/25 16:59 White Blood Count 3.3 K/uL (4.8-10.8) L Red Blood Count 3.40 MIL/uL (4.00-5.50) L Hemoglobin 11.2 g/dL (12.0-16.0) L Hematocrit 33.5 % (36-48) L Mean Corpuscular Volume 98.5 fL (79-99) Mean Corpuscular Hemoglobin 32.9 pg (27.0-33.0) Mean Corpuscular Hemoglobin Concent 33.4 g/dL (32.0-36.0) Red Cell Distribution Width 14.8 % (11.0-15.5) Platelet Count 82 K/uL (130-400) L Mean Platelet Volume 9.7 fL (7.5-10.5) Immature Granulocyte % (Auto) 0.3 % (0-1) Neutrophils (%) (Auto) 42.3 % (40.0-77.0) Lymphocytes (%) (Auto) 35.3 % (21.0-51.0) Monocytes (%) (Auto) 18.5 % (3.0-13.0) H Eosinophils (%) (Auto) 2.4 % (0.0-8.0) Basophils (%) (Auto) 1.2 % (0.0-5.0) Neutrophils # (Auto) 1.4 K/uL (1.8-7.7) L Lymphocytes # (Auto) 1.2 K/uL (1.0-4.8) Monocytes # (Auto) 0.6 K/uL (0.1-1.0) Eosinophils # (Auto) 0.08 K/uL (0.00-0.70) Basophils # (Auto) 0.04 K/uL (0.00-0.20) Absolute Immature Granulocyte (auto 0.01 K/uL (0-1) Nucleated Red Blood Cells 0.0 % (0.0-0.19) White Cell Morphology Comment See comments Sodium Level 141 mmol/L (136-145) Potassium Level 3.4 mmol/L (3.5-5.1) L Chloride Level 106 mmol/L (101-111) Carbon Dioxide Level 31 mmol/L (21-32) Blood Urea Nitrogen 7 mg/dL (7-18) Creatinine 0.7 mg/dL (0.5-1.0) Glomerular Filtration Rate Calc 92 mL/min (>90) Random Glucose 154 mg/dL (70-105) H Total Calcium 9.5 mg/dL (8.5-10.1) Total Bilirubin 2.3 mg/dL (0.2-1.0) H Aspartate Amino Transf (AST/SGOT) 72 U/L (10-37) H Alanine Aminotransferase (ALT/SGPT) 34 U/L (12-78) Alkaline Phosphatase 130 U/L (50-136) Total Creatine Kinase 130 U/L (21-232) # Total Protein 6.5 g/dL (6.0-8.3) Albumin 2.2 g/dL (3.5-5.0) L Urine Color YELLOW (YELLOW) Urine Appearance HAZY (CLEAR) Urine pH 6.5 (5.0-8.0) Urine Specific [place] 1.017 (1.001-1.031) Urine Protein NEGATIVE mg/dL (NEGATIVE) Urine Glucose (UA) NEGATIVE mg/dL (NEGATIVE) Urine Ketones NEGATIVE mg/dL (NEGATIVE) Urine Occult Blood NEGATIVE (NEGATIVE) Urine Nitrate NEGATIVE (NEGATIVE) Urine Bilirubin NEGATIVE mg/dL (NEGATIVE) Urine Urobilinogen 12 mg/dL (0.2-1.0) H Urine Leukocyte Esterase 25 Kristopher/uL (NEGATIVE) H Urine RBC 0-1 /HPF (0-1) Urine WBC 2-5 /HPF (0-1) H Urine Squamous Epithelial Cells MANY /HPF (0-2) Urine Calcium Oxalate Crystals MOD /LPF (None Seen) Urine Bacteria FEW /HPF (None Seen) Urine Opiates Screen NEGATIVE (NEGATIVE) Urine Barbiturates Screen NEGATIVE (NEGATIVE) Urine Phencyclidine Screen NEGATIVE (NEGATIVE) Urine Amphetamines Screen NEGATIVE (NEGATIVE) Urine Benzodiazepines Screen POSITIVE (NEGATIVE) H Urine Cocaine Screen NEGATIVE (NEGATIVE) Urine Marijuana (THC) Screen POSITIVE (NEGATIVE) H Labs Reviewed?: Yes MDM MDM: Differential diagnosis: Medication affects, history of depression, chronic depression, cannabis abuse, UTI Rationale: Tests considered and ordered secondary to shared decision making include: Previous outside records reviewed: Old ER visits. Risk of complication and/or morbidity or mortality of patient management: None Medications-Per medication reconciliation Need for hospitalization: Patient does not meet criteria for hospitalization. Need for emergency major/minor surgery: No Patient is a 69-year-old female coming in to be evaluated. Per patient has been acting more sleepy more tired. She has has been evaluated at a mental health facility and has been believes they gave her some medications in his sedating her. Laboratory workup positive for benzodiazepines as well as cannabis. Long with a some mild UTI. I did advised refractory mixer and patient to stay away from cannabis as this would make her more tired. ED Course Orders Procedure Category Date Status Time Cbc With Differential LAB 07/04/25 Complete 14:30 Comprehensive LAB 07/04/25 Complete Metabolic Panel 14:30 Urinalysis Profile LAB 07/04/25 Complete 14:30 Creatine Kinase, Total LAB 07/04/25 Complete 14:30 Drug Screen Urine LAB 07/04/25 Complete 14:30 Potassium Bicarb/Cit PHA 07/04/25 Complete Ac 25meq (K-Lyte Ta 17:00 0.9%Nacl 1000ml (Ns PHA 07/04/25 Complete 1000ml) 17:00 Current Medications Medications (Trade) Dose Ordered Sig/Franki Route PRN Reason Start Time Stop Time Status Last Admin Dose Admin Potassium Bicarbonate (K-Lyte Tablet Eff 25 Meq Tablet.eff) 25 meq ONCE ONCE PO 07/04/25 17:00 07/04/25 17:01 DC Sodium Chloride 1,000 ml @ 0 mls/hr ONCE ONCE IV 07/04/25 17:00 07/04/25 17:01 DC Vital Signs Date Time Temp Pulse Resp B/P (MAP) Pulse Ox O2 Delivery O2 Flow Rate FiO2 07/04/25 17:04 97.7 84 18 140/71 98 Room Air* 0 21 07/04/25 14:17 98.4 93 20 115/62 99 Room Air DX & DISP Disposition: Discharge Departure Impression: Primary Impression: Anxiety and depression Additional Impressions: Patient advised medication may affect driving, Cannabis abuse, UTI (urinary tract infection) Condition: Stable Scripts Cephalexin Monohydrate (Keflex) 500 Mg Cap 1 CAP PO BID for 10 Days, #20 CAP 0 Refills Prov: EUGENIE CAMARILLO MD 07/04/25 Additional Instructions: FOLLOW-UP WITH PRIMARY CARE PROVIDER IN 1 TO 2 DAYS. TAKE MEDICATIONS DIRECT ED HERE IN THE EMERGENCY ROOM. OKAY TO CONTINUE HOME MEDICATIONS UNLESS OTHERWISE DISCUSSED DURING YOUR VISIT IN THE EMERGENCY ROOM TODAY. RETURN TO YOUR NEAREST EMERGENCY ROOM IF SYMPTOMS WORSEN OR IF THERE IS NO IMPROVEMENT. CALL 911 IF YOU NEED IMMEDIATE ASSISTANCE. TAKE TYLENOL [id number] NEEDED AND IF NO CONTRAINDICATIONS ARE PRESENT. INCREASE ORAL HYDRATION. A WOUND CULTURE OR URINE CULTURE WAS ORDERED HERE IN THE EMERGENCY ROOM DEPARTMENT PLEASE FOLLOW-UP WITH PRIMARY CARE PROVIDER AND ADVISE THEM TO GET REPORTS FROM OUR FACILITY. IF YOU HAD ANY NIKO WRAP/SPLINTS THAT WERE APPLIED HERE, PLEASE DO NOT REMOVE THEM UNTIL YOU SEE YOUR PRIMARY CARE OR SPECIALTY. Referrals: Referrals: SILVERIO JEFFERS MD (PCP) Time of Disposition: 17:47 EUGENIE CAMARILLO MD Jul 04, 2025 17:01
[2025-07-04 17:30] LABS: GLUCOSE, URINE (UA) NEGATIVE (NEGATIVE); LEUKOCYTE ESTERASE ,URINE 25 Leu/uL (NEGATIVE); NITRATE,URINE NEGATIVE (NEGATIVE); OCCULT BLOOD,URINE NEGATIVE (NEGATIVE)
[2025-07-04 17:32] LABS: ADD UA MICROSCOPIC YES; APPEARANCE,URINE HAZY (CLEAR)
[2025-07-04 17:41] LABS: AMPHET/METH SCREEN,URINE NEGATIVE (NEGATIVE); BARBITURATE SCREEN, URINE NEGATIVE (NEGATIVE); CALCIUM OXALATE CRYSTALS,UR MOD /LPF (None Seen); CANNABINOID SCREEN,URINE POSITIVE (NEGATIVE); COCAINE SCREEN,URINE NEGATIVE (NEGATIVE); SQUAMOUS EPITHELIAL CELL,UR MANY /HPF (0-2)
[2025-07-04] MEDS: 0.9%NACL 1000ML 1,000 ML IV ONE (17:46)
[2025-07-04] MEDS ORDERED: CEPH500B PO (17:48)
[2025-07-04 18:03] VITALS: BP 132/69; PULSE 82; RESP 16; TEMP 97.7; O2SAT 98
== END 2025-07-04 18:47 | disposition home or self-care (01) ==
LOC: EDH 14:15
DX: F41.9 Anxiety disorder, unspecified (principal); F32.A Depression, unspecified; F12.10 Cannabis abuse, uncomplicated; N39.0 Urinary tract infection, site not specified; E03.9 Hypothyroidism, unspecified; E11.9 Type 2 diabetes mellitus without complications; I10 Essential (primary) hypertension; Z79.899 Other long term (current) drug therapy; Z88.1 Allergy status to other antibiotic agents; Z90.49 Acquired absence of other specified parts of digestive tract; Z90.710 Acquired absence of both cervix and uterus
CPT/HCPCS: 99284; 82550; 80053; 80305; 85025; 36415; 81001; J7030

== ENCOUNTER → 2025-07-09 | Outpatient (CLI) | payer MEDICARE ==
[~2025-07-09] MED LIST changes: +CEPH500B PO
--- NOTE | 2025-07-10 07:28 | HMCIMG ---
EXAM: MR Lumbar Spine Without Intravenous Contrast. CLINICAL HISTORY: Lumbar spinal stenosis with neurogenic claudication. TECHNIQUE: Magnetic resonance images of the lumbar spine in multiple planes. CONTRAST: None. COMPARISON: Radiograph dated 05/06/25. FINDINGS: For this examination, spinal levels were labeled assuming five [id number], lumbar-type vertebrae, with the inferior labeled L5. No acute fracture. Mild degenerative anterolisthesis of L4 over L5. Multilevel spondylosis is evident by marginal osteophytes and facet joint arthropathy. Multilevel disc desiccation noted. Mild to moderate degenerative disc height reduction at the L5-S1 level. Mild facet joint synovitis at the L4-L5 level. Normal vertebral body and remaining disc heights. Modic type II changes in the contiguous endplates at the L5-S1 level. Conus medullaris terminates at the L1 level. No abnormal epidural masses. Dilated tortuous splenorenal collaterals noted. Mild subcutaneous edema in the lower back. Small central cortical cysts are noted in the bilateral kidneys. Individual spinal levels are described as follows: T12-L1: No disc bulge or herniation. No neural foraminal, lateral recess, or spinal canal stenosis. L1-L2: No disc bulge or herniation. No neural foraminal, lateral recess, or spinal canal stenosis. L2-L3: 2 mm disc osteophyte complex bulge causing mild indentation on the anterior thecal sac. No neural foraminal or lateral recess stenosis. L3-L4: 3 mm disc osteophyte complex bulge causing mild indentation on the anterior thecal sac. No neural foraminal or lateral recess stenosis. L4-L5: 6 mm anterolisthesis of L4 over L5 with uncovering of the posterior disc and facet joint arthropathy causing mild indentation on the anterior thecal sac, mild bilateral lateral recess narrowing with abutment of the traversing bilateral L5 nerve roots, and mild bilateral foraminal narrowing. L5-S1: 4 mm disc osteophyte complex bulge causing mild indentation on the anterior thecal sac and mild bilateral foraminal narrowing. No lateral recess stenosis. IMPRESSION: Redemonstrated mild degenerative anterolisthesis of L4 over L5. Redemonstrated multilevel spondylosis. Mild to moderate degenerative disc height reduction at the L5-S1 level. Mild facet joint synovitis at the L4-L5 level. Mild indentation on the anterior thecal sac at the L2-L3 and L3-L4 levels. Mild indentation on the anterior thecal sac, mild bilateral lateral recess narrowing with abutment of the traversing bilateral L5 nerve roots, and mild bilateral foraminal narrowing at the L4-L5 level. Mild indentation on the anterior thecal sac and mild bilateral foraminal narrowing at the L5-S1 level. Dilated tortuous splenorenal collaterals. Recommend contrast CT abdomen correlation. /[place]
== END | disposition home or self-care (01) ==
LOC: RAH 10:27
PROVIDERS: ATTEND Physical Medicine & Rehabilitation
DX: M47.817 Spondylosis without myelopathy or radiculopathy, lumbosacral region (principal); M48.07 Spinal stenosis, lumbosacral region; M43.16 Spondylolisthesis, lumbar region; M51.379 Other intervertebral disc degeneration, lumbosacral region without mention of lumbar back pain or lower extremity pain; M48.062 Spinal stenosis, lumbar region with neurogenic claudication; M65.98 Unspecified synovitis and tenosynovitis, other site; N28.1 Cyst of kidney, acquired; M25.78 Osteophyte, vertebrae; R60.1 Generalized edema
CPT/HCPCS: 72148

== ENCOUNTER → 2025-07-30 | Outpatient (CLI) | payer MEDICARE ==
--- NOTE | 2025-07-31 10:11 | HMCIMG ---
EXAM: MR Brain Without IV Contrast. CLINICAL HISTORY: Abnormal reflex. TECHNIQUE: Multiplanar multi-sequence MRI of the brain. CONTRAST: No. COMPARISON: CT scan of the brain. 06/13/2015. FINDINGS: Mild discrete and confluent T2-weighted and flair hyperintense signal intensities were identified in bilateral cerebral white matter. No evidence of acute cortical infarction, hemorrhage, mass, or mass effect. The ventricular system, sulci, and cisterns appear mildly prominent. No hydrocephalus. No abnormal extra-axial fluid collection is present. The marrow signal within the skull base and calvarium is intact. The paranasal sinuses are clear. Left mastoiditis. IMPRESSION: 1. No acute intracranial abnormality or mass. 2. Mild small vessel chronic ischemic changes in bilateral cerebral white matter. 3. Age-related cerebral atrophy. /[place]
--- NOTE | 2025-07-31 10:12 | HMCIMG ---
EXAM: MR Cervical Spine Without Intravenous Contrast. CLINICAL HISTORY: Abnormal reflexes. TECHNIQUE: Magnetic resonance images of the cervical spine in multiple planes. CONTRAST: None. COMPARISON: None. FINDINGS: The imaged posterior fossa is unremarkable. The craniocervical junction is intact. No acute fracture. Straightening of cervical spine curvature with maintained alignment. Visualised vertebrae show increased T1 and T2 signal, consistent with osteoporosis. Degenerative changes as multilevel marginal osteophytes, disc desiccation, ligamentum flavum hypertrophy, and facet joint arthropathy. Mildly reduced C4-C5, C5-C6, and C6-C7 intervertebral disc spaces. Normal vertebral body heights. No abnormal signal involves the cervical cord. No extra-axial masses. The surrounding soft tissues are unremarkable. Level by level, disease is present as follows: C1-C2: Mild osteoarthritis. C2-C3: No disc bulge or herniation. No neural foraminal, lateral recess, or spinal canal stenosis. C3-C4: 3 mm asymmetric posterior central and right paracentral disc osteophyte bulge, indenting thecal sac and right neural foramina. Mild right foraminal stenosis.. No significant exiting nerve root compression. C4-C5: 6 mm asymmetric posterior central and bilateral paracentral disc osteophyte bulge, indenting thecal sac and bilateral neural foramina. Ligamentum flavum hypertrophy is also present. Moderate bilateral foraminal stenosis. Moderate impingement over the bilateral exiting nerve root. C5-C6: 5 mm asymmetric posterior central and bilateral paracentral disc osteophyte bulge with ligamentum flavum hypertrophy, indenting thecal sac and bilateral neural foramina. Moderate bilateral foraminal stenosis. Mild impingement over bilateral exiting nerve roots. C6-C7: 5 mm asymmetric posterior central and bilateral paracentral disc osteophyte bulge with ligamentum flavum hypertrophy, indenting thecal sac and bilateral neural foramina. Moderate bilateral foraminal stenosis. Mild impingement over bilateral exiting nerve roots. C7-T1: 3 mm posterior central and bilateral paracentral disc bulge with ligamentum flavum hypertrophy, indenting thecal sac and bilateral neural foramina. Mild bilateral foraminal stenosis. No significant exiting nerve root compression IMPRESSION: No acute fracture. Moderate cervical spondylosis. Multilevel disc degenerative disease, more pronounced at C4-C5, C5-C6, and C6-C7 intervertebral disc levels, with impingement over bilateral exiting nerve roots. The cervical spinal cord appears normal in morphology and signal intensity. /[place]
== END | disposition home or self-care (01) ==
LOC: RAH 12:38
PROVIDERS: ATTEND Physical Medicine & Rehabilitation
DX: M47.813 Spondylosis without myelopathy or radiculopathy, cervicothoracic region (principal); M48.03 Spinal stenosis, cervicothoracic region; M50.33 Other cervical disc degeneration, cervicothoracic region; M25.78 Osteophyte, vertebrae; M50.321 Other cervical disc degeneration at C4-C5 level; M50.322 Other cervical disc degeneration at C5-C6 level; M50.323 Other cervical disc degeneration at C6-C7 level; I67.82 Cerebral ischemia; G31.9 Degenerative disease of nervous system, unspecified; R29.2 Abnormal reflex; R26.89 Other abnormalities of gait and mobility
CPT/HCPCS: 70551; 72141

== ENCOUNTER 2025-09-04 09:17 | Day surgery (SDC) | payer MEDICARE ==
[2025-09-03 14:01] LABS: NUCLEATED RED BLOOD CELLS 0.0 % (0.0-0.19); PLATELET COUNT (AUTO) 91 K/uL (130-400); RED BLOOD CELL COUNT(AUTO) 3.44 MIL/uL (4.00-5.50); RED CELL DISTRIBUTION WIDTH 16.1 % (11.0-15.5); WHITE BLOOD COUNT (AUTO) 2.7 K/uL (4.8-10.8)
[2025-09-03 14:17] VITALS: BP 132/78; PULSE 96; RESP 18; TEMP 99
[2025-09-03 14:26] LABS: IMMATURE GRANULOCYTE ABSOLUTE 0.00 K/uL (0-1)
--- NOTE | 2025-09-03 15:37 | NUR ---
REPORT DR BANDA REVIEWED EKG. OK TO PROCEED
--- NOTE | 2025-09-03 15:37 | NUR ---
REPORT DR CARABALLO INFORMED OF CBC. OK TO PROCEED
[2025-09-04] VITALS (15 sets, daily range): BP systolic 137–156; BP diastolic 73–81; PULSE 84–99; RESP 15–20; TEMP 97.3–98
[~2025-09-04] VITALS: Ht 167.6 cm; Wt 66.5 kg
[~2025-09-04 09:17] MED LIST changes: -ACET-2079 PO; +CALC-911 PO; -CEPH500B PO; -CYCL-309 PO; -DESM10SP2 NS; -GABA-529 PO; -HYDR-4060 PO; -KETO10TA2 PO; -LEVO25TA54 PO; +LEVO50CA5 PO; +MAGN200T4 PO; -OMEP40CA21 PO; +ONDA-243 PO; -ONDA-243 SL; -PRED20TA3 PO; -ROSU10TA22 PO; -UBID1CAP56 PO; +UBID200C37 PO
[2025-09-04] MEDS ORDERED: ACET-2079 PO (10:07)
[2025-09-04] MEDS ORDERED: FAMOTIDINE 20MG VIAL IV ONE (10:32)
[2025-09-04] MEDS ORDERED: SUGAMMADEX SODIUM 200 MG/2 ML VIAL IV ONE (10:33)
[2025-09-04] MEDS ORDERED: SUCCINYLCHOLINE CHLORIDE 20 MG/ML 10 ML VIAL ONE (10:38)
[2025-09-04] MEDS ORDERED: NEOSTIGMINE METHYLSULFATE 1MG/ML IV ONE (10:38)
[2025-09-04] MEDS ORDERED: GLYCOPYRROLATE 0.2 MG/ML 5 ML VIAL ONE (10:38)
[2025-09-04] MEDS ORDERED: LIDOCAINE PF 100MG/5ML (2%) SYRINGE 5ML ONE (10:38)
[2025-09-04] MEDS ORDERED: MIDAZOLAM HCL 1 MG/ML 2ML VIAL ONE ×2 (10:40→10:41)
[2025-09-04] MEDS: 0.9%NACL 1000ML 1,000 ML IV ONE (11:18)
[2025-09-04] MEDS ORDERED: PROMETHAZINE HCL 25 MG/ML 1ML AMPULE IM PRN (12:30)
--- NOTE | 2025-09-04 15:02 | NUR ---
POST-OP RECOVERY LEFT ARM WITH NIKO WRAP. NO ACTIVE BLEEDING OR DRAINAGE. DRESSING DRY AND INTACT. NO REDNESS SLIGHT SWELLING. PATIENT ABLE TO WIGGLE FINGERS.
--- NOTE | 2025-09-04 18:03 | OP ---
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 She was failing conservative management with night splints and was found on nerve conduction studies to have compression of the median and ulnar nerves at the wrist. After discussion of the risks, benefits, and alternatives, the patient voluntarily agreed to undergo the aforementioned procedure. DESCRIPTION OF PROCEDURE: Patient was properly identified in the preoperative holding area. Surgical site marking was verified and surgery consent reviewed. The patient was then taken to the operating room and placed in supine position on the OR table. After induction of general anesthesia, preoperative antibiotics were given, all bony prominences were well-padded, and a well padded tourniquet was applied but not inflated at this time. The [left lower] extremity was then prepped and draped in usual sterile fashion. Surgical timeout was done verifying correct surgery, side, site, and location to be performed. We then began the procedure by exsanguinating the arm using an Esmarch and inflating a tourniquet to 250 mmHg. We made an approximately 3 cm long incision at the ulnar border of the fourth digit, when flexed, on the midpalmar longitudinal crease. Here we came down sharply through the subcutaneous tissue and using a self retaining retractor as well as ragnelles we could visualize the deep tissue. We then identified the transverse carpal ligament and began to come through this a little bit at a time using a 15 blade with small amounts of pressure being applied. The ligament was then released. We directed our attention proximally where we spread above and below the remaining portion of the transverse carpal ligament to break up any adhesions and using a pair of Metzenbaum scissors we slid proximally and transected and the remaining proximal portion of the transverse carpal ligament. Distally, we placed our retractors to help a show the distal extent of the transverse carpal ligament, and we came through this carefully using a 15 blade until we identified the fat surrounding the palmar arch. We used a [place] elevator palpating both the proximal and distal directions to ensure the entire transverse carpal ligament had been released. We then dissected laterally where we were able to identify the ulnar nerve. We released the hypo thenar tendinous arch over the ulnar nerve as it traveled into the palm of the hand. We palpated with the a [place] elevator to ensure the tight tissues had been released. We then thoroughly irrigated out this wound with normal saline and injected the surrounding tissue with half percent Marcaine plain. The wound was then closed with 3-0 nylon interrupted simple suture pattern. Soft sterile dressing was applied with Xeroform, 4 x 4's, and Coban. The tourniquet was then deflated. The patient was awakened from anesthesia. There were taken to the recovery room in stable condition. CAMRYN CARABALLO MD Sep 04, 2025 18:03
== END 2025-09-04 13:18 | disposition home or self-care (01) ==
LOC: DAH 09:17
PROVIDERS: ATTEND Student in an Organized Health Care Education/Training Program
DX: G56.02 Carpal tunnel syndrome, left upper limb (principal); G56.22 Lesion of ulnar nerve, left upper limb; F41.9 Anxiety disorder, unspecified; F32.A Depression, unspecified; E11.9 Type 2 diabetes mellitus without complications; E78.5 Hyperlipidemia, unspecified; Z88.1 Allergy status to other antibiotic agents; Z90.710 Acquired absence of both cervix and uterus; Z98.890 Other specified postprocedural states; Z79.01 Long term (current) use of anticoagulants; Z79.899 Other long term (current) drug therapy
CPT/HCPCS: 85025; 85730; 36415; 64719; 64721; 82948 ×2; A4663; J1308; J3010 ×2; J1100; J0330; J7030; J0665; J3490 ×3; J2003; J2250 ×2; J2704; J2405; J0690; A6223; A4649 ×2; A4930; A4215; A4213; A4222; A4221; A4216; A4223 ×2; A4600; J2710